=== PATIENT | male | born 1990 | race Caucasian/White ===

== ENCOUNTER 2017-07-07 20:29 | Emergency (ER) | payer OTHER ==
[~2017-07-07] VITALS: Ht 180.3 cm; Wt 80.0 kg
[2017-07-07 20:36] VITALS: PULSE 100; RESP 22; TEMP 97.9
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
== END 2017-07-07 22:34 | disposition home or self-care (01) ==
LOC: NEPC 20:29
DX: S00.83XA Contusion of other part of head, initial encounter (principal); V43.52XA Car driver injured in collision with other type car in traffic accident, initial encounter
CPT/HCPCS: 70450; 72125; 99283